=== PATIENT | male | born 1970 | race Caucasian/White ===

== ENCOUNTER 2016-11-29 05:49 | Inpatient (IN) | payer OTHER ==
[2016-11-29] VITALS (7 sets, daily range): BP systolic 125–148; BP diastolic 77–90; PULSE 80–92; RESP 17–20; TEMP 96.6–98.6; O2SAT 94–99
[~2016-11-29] VITALS: Ht 180.3 cm; Wt 123.4 kg
[2016-11-29] MEDS ORDERED: ASPI81CH37 CHEW (06:12)
[2016-11-29] MEDS ORDERED: FLUO1TAB3 PO (06:12)
[2016-11-29] MEDS ORDERED: METF1000 PO (06:12)
[2016-11-29] MEDS ORDERED: COQ150CA PO (06:12)
[2016-11-29] MEDS ORDERED: CHOL5000 PO (06:12)
[2016-11-29] MEDS ORDERED: LIPI10TA PO (06:12)
[2016-11-29] MEDS ORDERED: OMEGCAP PO (06:12)
[2016-11-29] MEDS ORDERED: PROT40TA PO (06:12)
[2016-11-29] MEDS ORDERED: DIOV160T6 PO (06:12)
[2016-11-29] MEDS ORDERED: METO100T PO (06:12)
[2016-11-29] MEDS ORDERED: SITA1TAB2 PO (06:12)
[2016-11-29] MEDS ORDERED: SODIUM CHLOR 0.9% 1000 ML INJ 1,000 ML IV SCH ×2 (06:19→08:15)
--- NOTE | 2016-11-29 06:19 | PD ---
HPI Chief Complaint: GI Complaint Time Seen by Provider: 06:01 Travel History International Travel<30 days: No Contact w/Intl Traveler<30days: No Traveled to known affect area: No History of Present Illness HPI The patient is a 46-year-old male who complains of nausea, vomiting, fever, abdominal pain in the bilateral lower quadrants and midline epigastrium for 3 days. He states his vomitus looked like coffee grounds this morning. His fever got up to 101.7. He has not had any abdominal surgeries and still has his appendix and gallbladder. He tries to drink clear liquids and and some vomiting Gatorade and water. His primary care physician is in [place] but lives in [place]. He denies any recent foreign travel, well water ingestion , recent antibiotics, history of bowel problems such as regional enteritis or ulcerative colitis and he denies any exposure to anyone with similar symptoms. He denies any cough or sore throat. He does have a history of oral controlled diabetes. He recently had to add should new via because his diabetes was poorly controlled and his sugars were in the 300s. PFSH Past Medical History High Cholesterol: Yes Diabetes: Yes Patient Takes Glucophage: Yes GERD: Yes Hiatal Hernia: Yes Hypertension: Yes Sleep Apnea: Yes (WEARS CPAP) Tetanus Vaccination: < 5 Years Influenza Vaccination: Yes Past Surgical History Ear Surgery: Yes (TUBES A CHILD) Tonsillectomy: Yes Social History Alcohol Use: Yes (SOCIALLY) Tobacco Use: No Substance Use: No Allergies-Medications (Allergen,Severity, Reaction): Coded Allergies: No Known Allergies (Unverified , 11/29/16) Reported Meds & Prescriptions Reported Meds & Active Scripts Active Reported Vitamin D3 (Cholecalciferol) 5,000 Unit Cap 5,000 Units PO DAILY Coq10 (Coenzyme Q10 (Ubidecarenone)) 50 Mg Cap 400 Mg PO DAILY Anna-3 Fish Oil/Vitamin (Fish Oil-Cholecalciferol) 1,000-1,000 Mg Cap 2,100 Mg PO DAILY Aspirin Low Dose (Aspirin) 81 Mg Chew 81 Mg CHEW DAILY Lipitor (Atorvastatin Calcium) 10 Mg Tab 10 Mg PO HS Fluoxetine (Fluoxetine HCl) 20 Mg Tab 20 Mg PO DAILY Protonix (Pantoprazole Sodium) 40 Mg Tab 40 Mg PO DAILY Diovan (Valsartan) 160 Mg Tab 160 Mg PO DAILY Metoprolol Tartrate 100 Mg Tab 100 Mg PO BID Metformin (Metformin HCl) 1,000 Mg Tab 1,000 Mg PO BIDPC With meals Januvia (Sitagliptin Phosphate) 100 Mg Tab 100 Mg PO DAILY Review of Systems Except as stated in HPI: all other systems reviewed are Neg Physical Exam Narrative GENERAL: The patient is alert, obese, oriented 3, moderately dehydrated appearing and moderate apparent distress with his abdominal discomfort. His vital signs are normal. SKIN: Focused skin assessment warm/dry. HEAD: Atraumatic. Normocephalic. EYES: Pupils equal and round. No scleral icterus. No injection or drainage. ENT: No nasal bleeding or discharge. Mucous membranes pink and moist. NECK: Trachea midline. No JVD. CARDIOVASCULAR: Regular rate and rhythm. No murmur appreciated. RESPIRATORY: No accessory muscle use. Clear to auscultation. Breath sounds equal bilaterally. GASTROINTESTINAL: Abdomen soft, with tenderness in the midline epigastrium as well as tenderness in the bilateral lower quadrants to direct palpation, nondistended. Hepatic and splenic margins not palpable. No guarding or rebound is present. MUSCULOSKELETAL: No obvious deformities. No clubbing. No cyanosis. No edema. NEUROLOGICAL: Awake and alert. No obvious cranial nerve deficits. Motor grossly within normal limits. Normal speech. PSYCHIATRIC: Appropriate mood and affect; insight and judgment normal. Data Data Last Documented VS Vital Signs Date Time Temp Pulse Resp B/P Pulse Ox O2 Delivery O2 Flow Rate FiO2 11/29/16 05:54 98.3 92 18 126/79 95 Orders Complete Blood Count With Diff (11/29/16 06:19) Comprehensive Metabolic Panel (11/29/16 06:19) Lipase (11/29/16 06:19) Urinalysis - C+S If Indicated (11/29/16 06:19) Iv Access Insert/Monitor (11/29/16 06:19) Ecg Monitoring (11/29/16 06:19) Oximetry (11/29/16 06:19) Ondansetron Inj (Zofran Inj) (11/29/16 06:30) Sodium Chlor 0.9% 1000 Ml Inj (Ns 1000 M (11/29/16 06:19) Sodium Chloride 0.9% Flush (Ns Flush) (11/29/16 06:30) Sodium Chlor 0.9% 1000 Ml Inj (Ns 1000 M (11/29/16 06:30) Labs Laboratory Tests Test 11/29/16 06:00 White Blood Count 6.1 TH/MM3 Red Blood Count 5.96 MIL/MM3 Hemoglobin 16.5 GM/DL Hematocrit 48.9 % Mean Corpuscular Volume 82.0 FL Mean Corpuscular Hemoglobin 27.6 PG Mean Corpuscular Hemoglobin 33.7 % Concent Red Cell Distribution Width 12.5 % Platelet Count 280 TH/MM3 Mean Platelet Volume 8.5 FL Neutrophils (%) (Auto) 69.7 % Lymphocytes (%) (Auto) 12.1 % Monocytes (%) (Auto) 18.0 % Eosinophils (%) (Auto) 0.0 % Basophils (%) (Auto) 0.2 % Neutrophils # (Auto) 4.3 TH/MM3 Lymphocytes # (Auto) 0.7 TH/MM3 Monocytes # (Auto) 1.1 TH/MM3 Eosinophils # (Auto) 0.0 TH/MM3 Basophils # (Auto) 0.0 TH/MM3 CBC Comment DIFF FINAL Differential Comment Sodium Level 132 MEQ/L Potassium Level 4.1 MEQ/L Chloride Level 94 MEQ/L Carbon Dioxide Level 26.5 MEQ/L Anion Gap 12 MEQ/L Blood Urea Nitrogen 25 MG/DL Creatinine 1.40 MG/DL Estimat Glomerular Filtration 54 ML/MIN Rate Random Glucose 339 MG/DL Calcium Level 9.2 MG/DL Aspartate Amino Transf 113 U/L (AST/SGOT) Alanine Aminotransferase 194 U/L (ALT/SGPT) Albumin 3.8 GM/DL Lipase 89 U/L MDM Medical Decision Making Medical Screen Exam Complete: Yes Emergency Medical Condition: Yes Medical Record Reviewed: Yes Differential Diagnosis Viral gastroenteritis, bacterial enteritis, inflammatory bowel syndrome, dehydration, electrolyte disorder, hyperglycemia, hypoglycemia, renal insufficiency Narrative Course It is now [address] Ybarra has taken over the patient. The patient feels slightly better because he is being hydrated. Car Guthrie MD Nov 29, 2016 06:19
[2016-11-29] MEDS: SODIUM CHLOR 0.9% 1000 ML INJ 1,000 ML IV SCH ×4 (06:27→16:27)
[2016-11-29 06:29] LABS: AUTOMATED NEUTROPHIL # 4.3 TH/MM3 (1.8-7.7); BASOPHIL % 0.2 % (0.0-2.0); HEMATOCRIT 48.9 % (39.0-51.0); HEMO FLAGS DIFF FINAL; LYMPH % 12.1 % (9.0-44.0); LYMPHOCYTE # 0.7 TH/MM3 (1.0-4.8); MEAN CORPUSCULAR HEMOGLOBIN 27.6 PG (27.0-34.0); MEAN CORPUSCULAR HGB CONC 33.7 % (32.0-36.0); NEUT % 69.7 % (16.0-70.0); PLATELET COUNT 280 TH/MM3 (150-450); RED BLOOD COUNT 5.96 MIL/MM3 (4.50-5.90); RED CELL DISTRIBUTION WIDTH 12.5 % (11.6-17.2); WHITE BLOOD COUNT 6.1 TH/MM3 (4.0-11.0)
[2016-11-29] MEDS ORDERED: SODIUM CHLORIDE 0.9% FLUSH 10 ML FLUSH IV FLUSH PRN ×2 (06:30→08:30)
[2016-11-29] MEDS ORDERED: ONDANSETRON HCL 4 MG/2 ML VIAL IVP ONE (06:30)
[2016-11-29 06:34] LABS: CHLORIDE 94 MEQ/L (98-107); POTASSIUM 4.1 MEQ/L (3.5-5.1); SODIUM (NA) 132 MEQ/L (136-145)
[2016-11-29 06:38] LABS: ANION GAP 12 MEQ/L (5-15); BICARBONATE 26.5 MEQ/L (21.0-32.0)
[2016-11-29 06:39] LABS: BLOOD UREA NITROGEN 25 MG/DL (7-18)
[2016-11-29 06:41] LABS: ALT (GPT) 194 U/L (12-78); AST (GOT) 113 U/L (15-37); GLOMERULAR FILTRATION RATE 54 ML/MIN (>89)
[2016-11-29 06:43] LABS: TOTAL BILIRUBIN ADULT 1.7 MG/DL (0.2-1.0)
[2016-11-29 06:44] LABS: ALKALINE PHOSPHATASE 129 U/L (45-117)
--- NOTE | 2016-11-29 07:13 | PD ---
Physical Exam Narrative Patient was seen by ED physician and signed out to me. Data Data Last Documented VS Vital Signs Date Time Temp Pulse Resp B/P Pulse Ox O2 Delivery O2 Flow Rate FiO2 11/29/16 08:24 80 18 148/90 98 Room Air 11/29/16 06:55 98.6 Orders Complete Blood Count With Diff (11/29/16 06:19) Comprehensive Metabolic Panel (11/29/16 06:19) Lipase (11/29/16 06:19) Urinalysis - C+S If Indicated (11/29/16 06:19) Iv Access Insert/Monitor (11/29/16 06:19) Ecg Monitoring (11/29/16 06:19) Oximetry (11/29/16 06:19) Ondansetron Inj (Zofran Inj) (11/29/16 06:30) Sodium Chlor 0.9% 1000 Ml Inj (Ns 1000 M (11/29/16 06:19) Sodium Chloride 0.9% Flush (Ns Flush) (11/29/16 06:30) Sodium Chlor 0.9% 1000 Ml Inj (Ns 1000 M (11/29/16 06:30) Ct Abd/Pel W Iv Contrast(Rout) (11/29/16 06:56) Iohexol 350 Inj (Omnipaque 350 Inj) (11/29/16 07:36) Sodium Chlorid 0.9% 500 Ml Inj (Ns 500 M (11/29/16 08:00) Sodium Chlor 0.9% 1000 Ml Inj (Ns 1000 M (11/29/16 08:15) Pantoprazole Inj (Protonix Inj) (11/29/16 08:15) Us Abdomen Gallbladder (11/29/16 08:07) Admit To Inpatient (11/29/16 ) Vital Signs (Adult) Q4H (11/29/16 08:25) Activity Oob With Assistance (11/29/16 08:25) Intake + Output MIGUEL A.QSHIFT (11/29/16 08:25) Diet Npo (11/29/16 Breakfast) Sodium Chlor 0.9% 1000 Ml Inj (Ns 1000 M (11/29/16 08:25) Sodium Chloride 0.9% Flush (Ns Flush) (11/29/16 08:30) Sodium Chloride 0.9% Flush (Ns Flush) (11/29/16 09:00) Ondansetron Inj (Zofran Inj) (11/29/16 08:30) Comprehensive Metabolic Panel (11/30/16 06:00) Complete Blood Count With Diff (11/30/16 06:00) Pt Request For Service (11/29/16 08:25) Case Management Consult (11/29/16 08:25) Scd Bilateral/Knee High MIGUEL A.BID (11/29/16 08:25) Naloxone Inj (Narcan Inj) (11/29/16 08:30) Inpatient Certification (11/29/16 ) Admit Order (Ed Use Only) (11/29/16 08:31) Labs Laboratory Tests Test 11/29/16 11/29/16 06:00 07:20 White Blood Count 6.1 TH/MM3 Red Blood Count 5.96 MIL/MM3 Hemoglobin 16.5 GM/DL Hematocrit 48.9 % Mean Corpuscular Volume 82.0 FL Mean Corpuscular Hemoglobin 27.6 PG Mean Corpuscular Hemoglobin 33.7 % Concent Red Cell Distribution Width 12.5 % Platelet Count 280 TH/MM3 Mean Platelet Volume 8.5 FL Neutrophils (%) (Auto) 69.7 % Lymphocytes (%) (Auto) 12.1 % Monocytes (%) (Auto) 18.0 % Eosinophils (%) (Auto) 0.0 % Basophils (%) (Auto) 0.2 % Neutrophils # (Auto) 4.3 TH/MM3 Lymphocytes # (Auto) 0.7 TH/MM3 Monocytes # (Auto) 1.1 TH/MM3 Eosinophils # (Auto) 0.0 TH/MM3 Basophils # (Auto) 0.0 TH/MM3 CBC Comment DIFF FINAL Differential Comment Sodium Level 132 MEQ/L Potassium Level 4.1 MEQ/L Chloride Level 94 MEQ/L Carbon Dioxide Level 26.5 MEQ/L Anion Gap 12 MEQ/L Blood Urea Nitrogen 25 MG/DL Creatinine 1.40 MG/DL Estimat Glomerular Filtration 54 ML/MIN Rate Random Glucose 339 MG/DL Calcium Level 9.2 MG/DL Total Bilirubin 1.7 MG/DL Aspartate Amino Transf 113 U/L (AST/SGOT) Alanine Aminotransferase 194 U/L (ALT/SGPT) Alkaline Phosphatase 129 U/L Total Protein 8.8 GM/DL Albumin 3.8 GM/DL Lipase 89 U/L Urine Collection Type VOIDED Urine Color YELLOW Urine Turbidity CLEAR Urine pH 5.5 Urine Specific [place] 1.035 Urine Protein TRACE mg/dL Urine Glucose (UA) 500 mg/dL Urine Ketones 15 mg/dL Urine Occult Blood NEG Urine Nitrite NEG Urine Bilirubin NEG Urine Leukocyte Esterase NEG Urine WBC 0-2 /hpf Urine Squamous Epithelial 0-2 /hpf Cells Urine Hyaline Casts 10-14 /lpf Urine Mucus FEW /lpf Microscopic Urinalysis Comment CULT NOT INDICATED MDM Supervised Visit with RIKKI: No Interpretation(s) Last Impressions Abdomen/Pelvis CT 11/29/16 0656 Signed Impressions: Service Date/Time: Tuesday, November 29, 2016 07:19 - CONCLUSION: 1. Hepatic steatosis and cholelithiasis. 2. Multiple dilated jejunal bowel loops concerning for junction. 3. Right adrenal nodule, nonspecific but likely lipid poor adrenal adenoma. Nehemias Lomeli MD 7:59 AM. CBC within normal limit. Sodium 132. BUN 25. Margarita 1.40. GFR 54. Glucose 339. Total bili 1.7. AST 113. ALT 194. Alkaline phosphatase 129. UA is Johnson gravity 1.035. Narrative Course Normal saline solution 2 L IV bolus. Normal saline solution 1 25 cc an hour. Zofran 4 g IV. Protonix 40 mg IV. I spoke with general surgery Dr. Ragland. Advised hold off on NG tube for now. GI consultation will be initiated. Diagnosis Primary Impression: Ileus Additional Impressions: Cholelithiasis Qualified Code: K80.20 - Calculus of gallbladder without cholecystitis without obstruction Transaminitis Renal insufficiency Hyperglycemia Admitting Information Admitting Physician Requests: Admit Anson Ybarra MD Nov 29, 2016 07:13
[2016-11-29] MEDS ORDERED: METFORMIN HOLD POST IV CONTRAST SCH (07:20)
[2016-11-29 07:34] LABS: BLOOD, URINE NEG (NEG); GLUCOSE,URINE 500 mg/dL (NEG); KETONE, URINE 15 mg/dL (NEG); NITRITE,URINE NEG (NEG); PH, URINE 5.5 (5.0-8.5)
[2016-11-29] MEDS ORDERED: IOHEXOL 350 MG/ML 10 ML VIAL (for RAD DIAG) IV ONE (07:36)
[2016-11-29 07:45] LABS: METHOD OF COLLECTION VOIDED; MUCUS URINE FEW /lpf (OCC); SQUAMOUS EPITHELIAL CELL URINE 0-2 /hpf (0-5); URINE COLOR YELLOW (YELLW/STRAW); WBC, URINE 0-2 /hpf (0-5)
[2016-11-29 07:46] LABS: COMMENT (UR) CULT NOT INDICATED; CULTURE IF INDICATED CULT NOT INDICATED
--- NOTE | 2016-11-29 07:49 | RADRPT ---
EXAM DATE/TIME: 11/29/2016 07:19 [facility] COMPARISON: No previous studies available for comparison. INDICATIONS : Lower abdominal pain. Nausea, vomiting, diarrhea and fever. IV CONTRAST: 85 cc Omnipaque 350 (iohexol) IV ORAL CONTRAST: No oral contrast ingested. RADIATION DOSE: 21.95 CTDIvol (mGy) MEDICAL HISTORY : Diabetes mellitus type 2. Gastroesophageal reflux disease. Hypertension. SURGICAL HISTORY : None. ENCOUNTER: Initial ACUITY: 3 days PAIN SCALE: 3/10 LOCATION: Bilateral lower quadrant TECHNIQUE: Volumetric scanning of the abdomen and pelvis was performed. Using automated exposure control and ad justment of the mA and/or kV according to patient size, radiation dose was kept as low as reasonably achievable to obtain optimal diagnostic quality images. DICOM format image data is available electro nically for review and comparison. FINDINGS: LOWER LUNGS: The visualized lower lungs are clear. LIVER: Decreased attenuation without lesion. There is no dilation of the biliary tree. Multiple calcified g allstones. SPLEEN: Normal size without lesion. PANCREAS: Within normal limits. KIDNEYS: Normal in size and shape. There is no mass, stone or hydronephrosis. ADRENAL GLANDS: 1.7 cm right adrenal nodule. Left adrenal gland normal. VASCULAR: There is no aortic aneurysm. BOWEL/MESENTERY: Multiple dilated loops of jejunum are seen concerning for obstruction.. There is no free intraperito lauro air or fluid. ABDOMINAL WALL: Within normal limits. RETROPERITONEUM: There is no lymphadenopathy. BLADDER: No wall thickening or mass. REPRODUCTIVE: Within normal limits. INGUINAL: There is no lymphadenopathy or hernia. MUSCULOSKELETAL: Within normal limits for patient age. CONCLUSION: 1. Hepatic steatosis and cholelithiasis. 2. Multiple dilated jejunal bowel loops concerning for junction. 3. Right adrenal nodule, nonspecific but likely lipid poor adrenal adenoma. Nehemias Lomeli MD on November 29, 2016 at 7:45 Board Certified Radiologist. This report was verified electronically.
[2016-11-29] MEDS ORDERED: SODIUM CHLORID 0.9% 500 ML INJ 500 ML IV ONE (08:00)
[2016-11-29] MEDS ORDERED: PANTOPRAZOLE SODIUM 40 MG VIAL IV PUSH ONE (08:15)
[2016-11-29] MEDS ORDERED: NALOXONE HCL 0.4 MG/ML AMP IV PRN (08:30)
[2016-11-29] MEDS ORDERED: ONDANSETRON HCL 4 MG/2 ML VIAL IVP PRN (08:30)
--- NOTE | 2016-11-29 08:44 | RADRPT ---
EXAM DATE/TIME: 11/29/2016 08:14 [facility] COMPARISON: No previous studies available for comparison. INDICATIONS : Nausea and vomiting. MEDICAL HISTORY : Diabetes mellitus type 2. Gastroesophageal reflux disease. Hypertension. SURGICAL HISTORY : None. ENCOUNTER: Subsequent ACUITY: 3 days PAIN SCORE: 3/10 LOCATION: Right upper quadrant MEASUREMENTS: LIVER: 20.2 cm length COMMON DUCT: Non-visualized RIGHT KIDNEY: 11.7 x 6.5 x 6.4 cm FINDINGS: LIVER: Enlarged and echogenic without focal lesion or ductal dilatation. COMMON DUCT: Not seen. GALLBLADDER: not visualized. PANCREAS: Not visualized. RIGHT KIDNEY: No evidence of hydronephrosis, stone, or mass. CONCLUSION: 1. Enlarged echogenic liver likely severe hepatic steatosis. 2. Nonvisualization of the common bile duct, gallbladder and pancreas due to overlying bowel gas. Nehemias Lomeli MD on November 29, 2016 at 8:39 Board Certified Radiologist. This report was verified electronically.
[2016-11-29] MEDS: SODIUM CHLORIDE 0.9% FLUSH 10 ML FLUSH IV FLUSH SCH ×2 (09:00→21:00)
[2016-11-29] MEDS ORDERED: ONDANSETRON HCL 4 MG/2 ML VIAL IV PUSH ONE (09:15)
[2016-11-29] MEDS: METOPROLOL TARTRATE 100 MG TAB PO SCH ×2 (10:17→21:42)
[2016-11-29] MEDS: INSULIN ASPART SUPPLEMENTAL SCALE SQ SCH ×2 (11:00→17:21)
--- NOTE | 2016-11-29 11:38 | HHI.HP ---
[facility] Physician Non-Staff Admission Diagnosis Ileus. Cholelithiasis. Renal insufficiency. Hyperglycemia. Diagnoses: (1) Nausea and vomiting Diagnosis: Principal (2) Hematemesis Diagnosis: Principal (3) Diarrhea Diagnosis: Principal (4) Small bowel obstruction Diagnosis: Principal (5) Ileus Diagnosis: Principal (6) Transaminitis Diagnosis: Principal (7) Azotemia Diagnosis: Principal (8) Hyponatremia Diagnosis: Principal (9) Diabetes Diagnosis: Secondary (10) Hypertension Diagnosis: Secondary (11) Hyperlipidemia Diagnosis: Secondary Chief Complaint: Nausea and vomiting with blood noted in emesis Travel History International Travel<30 Days: No Contact w/Intl Traveler <30 Da: No Traveled to Known Affected Are: No History of Present Illness Written by Sha Guthrie, acting as scribe for Dr. Winn on 11/29/16 at 11: 18. 46-year-old male with known history of hypertension, hyperlipidemia, diabetes, sleep apnea who presented to the hospital for evaluation of blood noted in his emesis. Patient indicates that his symptoms started 2 days ago, in which he started having episodes of nausea and vomiting on Friday night. His symptoms continued throughout with nausea, vomiting and he started developing watery diarrhea. He noticed that he was having a fever of 102 intermittently throughout the day. The fever was controlled with Tylenol. The patient did take 2 Imodium yesterday for control of the diarrhea which did help. Patient noticed that on night he started having black liquid when he vomited. Then early this morning he vomited and noticed specks of blood , and that was the reason he came to the hospital for evaluation. Patient indicates that he has had abdominal pain since located in upper and lower abdomen. He denies any sick contacts. He still has significant nausea with intermittent vomiting. Denies any chest pain, shortness of breath, dyspnea. The patient indicates that he does have diabetes and has been uncontrolled lately, recently he just had change in his medications with the addition of Januvia. Patient does have family history of early-onset heart disease and he has had workup with nuclear stress test 2 years ago which was negative. She has significant findings upon workup in emergency department to include CT scan indicating small bowel obstruction. Elevated liver enzymes, CT scan does show steatohepatitis and cholelithiasis. However ultrasound could not evaluate bile duct, gallbladder, pancreas due to bowel gas. Patient was admitted the hospital for further evaluation and management. Review of Systems Constitutional: COMPLAINS OF: Fever Gastrointestinal: COMPLAINS OF: Abdominal pain, Diarrhea, Nausea, Vomiting Except as stated in HPI: all other systems reviewed are Neg Past Family Social History Past Medical History Hypertension Hyperlipidemia Diabetes Sleep apnea Past Surgical History Tonsillectomy Tympanotomies Reported Medications Reported Meds & Active Scripts Active Reported Vitamin D3 (Cholecalciferol) 5,000 Unit Cap 5,000 Units PO DAILY Coq10 (Coenzyme Q10 (Ubidecarenone)) 50 Mg Cap 400 Mg PO DAILY [place]-3 Fish Oil/Vitamin (Fish Oil-Cholecalciferol) 1,000-1,000 Mg Cap 2,100 Mg PO DAILY Aspirin Low Dose (Aspirin) 81 Mg Chew 81 Mg CHEW DAILY Lipitor (Atorvastatin Calcium) 10 Mg Tab 10 Mg PO HS Fluoxetine (Fluoxetine HCl) 20 Mg Tab 20 Mg PO DAILY Protonix (Pantoprazole Sodium) 40 Mg Tab 40 Mg PO DAILY Diovan (Valsartan) 160 Mg Tab 160 Mg PO DAILY Metoprolol Tartrate 100 Mg Tab 100 Mg PO BID Metformin (Metformin HCl) 1,000 Mg Tab 1,000 Mg PO BIDPC With meals Januvia (Sitagliptin Phosphate) 100 Mg Tab 100 Mg PO DAILY Allergies: Coded Allergies: No Known Allergies (Unverified , 11/29/16) Family History Reviewed is significant for mother having heart disease, diabetes. Father with early onset heart disease, at age 48 from coronary event. Social History Patient states that he used anteriorly smoke cigars 20 years ago. He does drink alcohol occasionally approximately 2 times weekly. Denies any illicit drugs Physical Exam Vital Signs Vital Signs Date Time Temp Pulse Resp B/P Pulse Ox O2 Delivery O2 Flow Rate FiO2 11/29/16 10:18 98.1 80 17 131/78 96 11/29/16 08:24 80 18 148/90 98 Room Air 11/29/16 06:55 98.6 81 20 134/88 97 Room Air 11/29/16 05:54 98.3 92 18 126/79 95 Physical Exam GENERAL: Well-developed, well-nourished, in no acute distress. alert and orientated HEENT: Head is normocephalic without any lesions or masses noted. Facial features are symmetric. Eyes: Pupils equal round reactive to light. Extraocular muscles are intact. Conjunctivae were clear. Oropharyngeal: Pharynx without any erythema edema. Tongue is midline without deviation. Buccal mucosa is moist without any masses or lesions NECK: Supple without any masses. Trachea midline no deviation. No JVD, no bruits are appreciated CARDIAC: Regular rhythm, regular rate. S1/S2 are heard. No murmurs gallops or rubs. LUNGS: Clear to auscultation bilaterally. No wheeze, rhonchi or rales. No use of accessory muscles on inspiration or expiration. ABDOMEN: Soft, nontender. Distended. Bowel sounds hypoactive. No organomegaly or masses. Negative rebound, negative guarding EXTREMITIES: No edema, pulses are equal bilaterally. No cyanosis or clubbing NEUROLOGY: Mood and affect appear appropriate. Cranial nerves II through XII grossly intact. Muscle strength 5/5 in upper and lower extremities bilaterally. Deep tendon reflexes are 2+ in upper and lower extremities bilaterally. Laboratory Laboratory Tests Test 11/29/16 11/29/16 06:00 07:20 White Blood Count 6.1 Red Blood Count 5.96 Hemoglobin 16.5 Hematocrit 48.9 Mean Corpuscular Volume 82.0 Mean Corpuscular Hemoglobin 27.6 Mean Corpuscular Hemoglobin 33.7 Concent Red Cell Distribution Width 12.5 Platelet Count 280 Mean Platelet Volume 8.5 Neutrophils (%) (Auto) 69.7 Lymphocytes (%) (Auto) 12.1 Monocytes (%) (Auto) 18.0 Eosinophils (%) (Auto) 0.0 Basophils (%) (Auto) 0.2 Neutrophils # (Auto) 4.3 Lymphocytes # (Auto) 0.7 Monocytes # (Auto) 1.1 Eosinophils # (Auto) 0.0 Basophils # (Auto) 0.0 CBC Comment DIFF FINAL Differential Comment Sodium Level 132 Potassium Level 4.1 Chloride Level 94 Carbon Dioxide Level 26.5 Anion Gap 12 Blood Urea Nitrogen 25 Creatinine 1.40 Estimat Glomerular Filtration 54 Rate Random Glucose 339 Calcium Level 9.2 Total Bilirubin 1.7 Aspartate Amino Transf 113 (AST/SGOT) Alanine Aminotransferase 194 (ALT/SGPT) Alkaline Phosphatase 129 Total Protein 8.8 Albumin 3.8 Lipase 89 Urine Collection Type VOIDED Urine Color YELLOW Urine Turbidity CLEAR Urine pH 5.5 Urine Specific [place] 1.035 Urine Protein TRACE Urine Glucose (UA) 500 Urine Ketones 15 Urine Occult Blood NEG Urine Nitrite NEG Urine Bilirubin NEG Urine Leukocyte Esterase NEG Urine WBC 0-2 Urine Squamous Epithelial 0-2 Cells Urine Hyaline Casts 10-14 Urine Mucus FEW Microscopic Urinalysis Comment CULT NOT INDICATED Result Diagram: 11/29/16 0600 11/29/16 06 Imaging Last Impressions Gall Bladder Ultrasound 11/29/16 0807 Signed Impressions: Service Date/Time: Tuesday, November 29, 2016 08:14 - CONCLUSION: 1. Enlarged echogenic liver likely severe hepatic steatosis. 2. Nonvisualization of the common bile duct, gallbladder and pancreas due to overlying bowel gas. Nehemias Lomeli MD Abdomen/Pelvis CT 11/29/16 0656 Signed Impressions: Service Date/Time: Tuesday, November 29, 2016 07:19 - CONCLUSION: 1. Hepatic steatosis and cholelithiasis. 2. Multiple dilated jejunal bowel loops concerning for junction. 3. Right adrenal nodule, nonspecific but likely lipid poor adrenal adenoma. Nehemias Lomeli MD Assessment and Plan Assessment and Plan //Small bowel obstruction/ileus -Could be secondary to Imodium use -CT scan does indicate multiple dilated loops of jejunum concerning for obstruction -Surgery has been consulted for recommendations -Keep nothing by mouth -Continue IV fluids -If nausea vomiting persists may need to pursue NG tube for decompression -Check lactic acid level //Nausea, vomiting and diarrhea with possible hematemesis -Could be secondary to gastroenteritis, food poisoning -Continue Zofran -Continue IV fluids -GI consulted for recommendations -Continue Protonix -Check occult blood -Check stool for C. difficile //Transaminitis with hyperbilirubinemia -Could be secondary to nausea, vomiting, cholecystitis, cholelithiasis, [place] -CT scan does show a large liver with steatohepatitis -Gallbladder ultrasound unable to visualize bile duct, gallbladder, pancreas due to air, deferred to GI for possible HIDA scan -Check hepatitis profile -Continue monitor liver enzymes -Would appreciate recommendations from GI //Azotemia, unknown chronicity -Laboratory studies do indicate concentration, likely secondary to dehydration -Continue IV fluids -Monitor renal function //Hyponatremia -Pseudohyponatremia secondary to hyperglycemia -Corrected sodium level 136 //Diabetes, uncontrolled -Obtain hemoglobin A1c -Accu-Cheks with sliding scale insulin -Oral hypoglycemic agents held at this time due to likely obstruction //Hypertension, blood pressure stable this time -Continue home medications //Hyperlipidemia -Hold statin at this time due to elevated liver enzymes //DVT prevention -Sequential compression devices Physician Certification 2 Midnight Certification Type: Admission for Inpatient Services Order for Inpatient Services The services are ordered in accordance with Medicare regulations or non- Medicare payer requirements, as applicable. In the case of services not specified as inpatient-only, they are appropriately provided as inpatient services in accordance with the 2-midnight benchmark. Estimated LOS (days): 2 days is the estimated time the patient will need to remain in the hospital, assuming treatment plan goals are met and no additional complications. Post-Hospital Plan: Not yet determined Notes: This note was transcribed by scribe [Sha Guthrie]. I, Dr. Chava Winn personally performed the history, physical exam, and medical decision making; and confirmed the accuracy of the information in the transcribed note. Authenticated by Dr. Chava Winn on 11/29/16 at 14:38. Problem Qualifiers (1) Nausea and vomiting: (2) Hematemesis: Qualified Code: K92.0 - Hematemesis, presence of nausea not specified (3) Diarrhea: Qualified Code: R19.7 - Diarrhea, unspecified type (4) Diabetes: Qualified Code: E11.8 - Type 2 diabetes mellitus with complication, without long-term current use of insulin (5) Hypertension: Qualified Code: I10 - Hypertension, unspecified type (6) Hyperlipidemia: Qualified Code: E78.5 - Hyperlipidemia, unspecified hyperlipidemia type Sha Guthrie Nov 29, 2016 11:38 Chava Winn MD Nov 29, 2016 14:38
[2016-11-29 12:21] LABS: INDIRECT BILIRUBIN 0.7 MG/DL (0.0-0.8); TOTAL BILIRUBIN ADULT 1.1 MG/DL (0.2-1.0)
--- NOTE | 2016-11-29 16:35 | PD.CONS ---
HPI History of Present Illness This is a 46 year old male presented to the ER for evaluation of hematemesis. Started having nausea and vomiting 2 days ago. Reports emesis was black liquid yesterday and then this morning he noted specks of blood in his vomit. Watery diarrhea started yesterday, took Imodium with mild relief.. Reports fevers at home, high of 102, took Tylenol with decrease in fever. Having diffuse abdominal pain and abdominal distention. Patient with medical history significant for hypertension, hyperlipidemia, diabetes, and sleep apnea. CT scan done in ER showed small bowel obstruction, steatohepatitis, and cholelithiasis. NG tube was placed with at least 950 mL output, green bilious liquid. Patient states he has never had colonoscopy. Has had EGD x 2 due to acid reflux, reports showed hiatal hernia, but denies history of gastric ulcers or gastritis. Reports symptoms of nausea, vomiting, and abdominal pain are improving since NG tube placement. (Beth Pringle) PFSH Past Medical History Hypertension Hyperlipidemia Diabetes Sleep apnea Past Surgical History Tonsillectomy Tympanotomies (Beth Prignle) Coded Allergies: No Known Allergies (Unverified , 11/29/16) Medications Current Medications Medications (Trade) Dose Ordered Sig/Josephine Route PRN Reason Start Time Stop Time Status Last Admin Dose Admin Sodium Chloride (NS 1000 ml Inj) 1,000 ml @ 100 mls/hr Q10H IV 11/29/16 08:25 11/29/16 10:18 Sodium Chloride (NS Flush) 2 ml UNSCH PRN IV FLUSH FLUSH AFTER USING IV ACCESS 11/29/16 08:30 Sodium Chloride (NS Flush) 2 ml BID IV FLUSH 11/29/16 09:00 Ondansetron HCl (Zofran Inj) 4 mg Q6H PRN IVP NAUSEA OR VOMITING 11/29/16 08:30 Naloxone HCl (Narcan Inj) 0.4 mg UNSCH PRN IV SEE LABEL COMMENTS 11/29/16 08:30 Metoprolol Tartrate (Lopressor) 100 mg BID PO 11/29/16 09:00 11/29/16 10:17 Miscellaneous Information HOLD METFORMIN FOR... Q24H .XX 11/29/16 07:20 12/01/16 07:19 Pantoprazole Sodium (Protonix Inj) 40 mg Q12HR IV PUSH 11/29/16 21:00 Family History ,Maternal -- Heart disease, diabetes Paternal -- Early onset heart disease, at age 48 secondary to coronary event. Social History Tobacco: No current use, tobacco history of cigars 20 years ago ETOH: 2 times per week Illicit Drugs: Denies (Beth Pringle) Review of Systems Constitutional: COMPLAINS OF: Fever, DENIES: Diaphoretic episodes, Fatigue, Weight gain, Weight loss, Chills, Dizziness, Change in appetite, Night Sweats Endocrine: DENIES: Polydipsia, Polyuria Eyes: DENIES: Blurred vision, Photosensitivity, Double Vision Ears, nose, mouth, throat: DENIES: Hearing loss, Vertigo, Oral lesions, Throat pain, Hoarseness Gastrointestinal: COMPLAINS OF: Abdominal pain, Diarrhea, Nausea, Vomiting, Swelling of Abdomen, DENIES: Black stools, Bloody stools, Constipation, Difficulty Swallowing, Anorexia, Odynophagia, Heartburn, Hematemesis Genitourinary: DENIES: Urinary frequency, Urinary incontinence, Urgency, Hematuria, Dysuria, Nocturia Musculoskeletal: DENIES: Joint pain, Muscle aches, Stiffness, Joint Swelling, Back pain, Neck pain Integumentary: DENIES: Abnormal pigmentation, Nail changes, Pruritus, Rash, Jaundice Hematologic/lymphatic: DENIES: Bruising, Lymphadenopathy Immunologic/allergic: DENIES: Eczema, Urticaria Neurologic: DENIES: Abnormal gait, Headache, Localized weakness, Paresthesias Psychiatric: DENIES: Anxiety, Confusion, Mood changes, Depression, Agitation, Suicidal Ideation (Beth Pringle) GI Exam Vitals I&O Vital Signs Date Time Temp Pulse Resp B/P Pulse Ox O2 Delivery O2 Flow Rate FiO2 11/29/16 12:00 97.8 89 17 138/86 99 11/29/16 10:18 98.1 80 17 131/78 96 11/29/16 08:24 80 18 148/90 98 Room Air 11/29/16 06:55 98.6 81 20 134/88 97 Room Air 11/29/16 05:54 98.3 92 18 126/79 95 I/O 11/28/16 11/28/16 11/28/16 11/29/1617 7/21/17 07:00 15:00 23:00 07:00 15:00 23:00 Intake Total 2000 ml Output Total 1100 ml Balance 900 ml Intake IV Total 2000 ml Output Urine Total 150 ml Emesis 950 ml # Voids 1 Imaging Last Impressions Gall Bladder Ultrasound 11/29/16 0807 Signed Impressions: Service Date/Time: Tuesday, November 29, 2016 08:14 - CONCLUSION: 1. Enlarged echogenic liver likely severe hepatic steatosis. 2. Nonvisualization of the common bile duct, gallbladder and pancreas due to overlying bowel gas. Nehemias Lomeli MD Abdomen/Pelvis CT 11/29/16 0656 Signed Impressions: Service Date/Time: Tuesday, November 29, 2016 07:19 - CONCLUSION: 1. Hepatic steatosis and cholelithiasis. 2. Multiple dilated jejunal bowel loops concerning for junction. 3. Right adrenal nodule, nonspecific but likely lipid poor adrenal adenoma. Nehemais Lomeli MD Laboratory Test 11/29/16 11/29/16 11/29/16 06:00 07:20 11:50 White Blood Count 6.1 TH/MM3 Red Blood Count 5.96 MIL/MM3 Hemoglobin 16.5 GM/DL Hematocrit 48.9 % Mean Corpuscular Volume 82.0 FL Mean Corpuscular Hemoglobin 27.6 PG Mean Corpuscular Hemoglobin 33.7 % Concent Red Cell Distribution Width 12.5 % Platelet Count 280 TH/MM3 Mean Platelet Volume 8.5 FL Neutrophils (%) (Auto) 69.7 % Lymphocytes (%) (Auto) 12.1 % Monocytes (%) (Auto) 18.0 % Eosinophils (%) (Auto) 0.0 % Basophils (%) (Auto) 0.2 % Neutrophils # (Auto) 4.3 TH/MM3 Lymphocytes # (Auto) 0.7 TH/MM3 Monocytes # (Auto) 1.1 TH/MM3 Eosinophils # (Auto) 0.0 TH/MM3 Basophils # (Auto) 0.0 TH/MM3 CBC Comment DIFF FINAL Differential Comment Sodium Level 132 MEQ/L Potassium Level 4.1 MEQ/L Chloride Level 94 MEQ/L Carbon Dioxide Level 26.5 MEQ/L Anion Gap 12 MEQ/L Blood Urea Nitrogen 25 MG/DL Creatinine 1.40 MG/DL Estimat Glomerular Filtration 54 ML/MIN Rate Random Glucose 339 MG/DL Calcium Level 9.2 MG/DL Total Bilirubin 1.7 MG/DL 1.1 MG/DL Aspartate Amino Transf 113 U/L (AST/SGOT) Alanine Aminotransferase 194 U/L (ALT/SGPT) Alkaline Phosphatase 129 U/L Total Protein 8.8 GM/DL Albumin 3.8 GM/DL Lipase 89 U/L Urine Collection Type VOIDED Urine Color YELLOW Urine Turbidity CLEAR Urine pH 5.5 Urine Specific [place] 1.035 Urine Protein TRACE mg/dL Urine Glucose (UA) 500 mg/dL Urine Ketones 15 mg/dL Urine Occult Blood NEG Urine Nitrite NEG Urine Bilirubin NEG Urine Leukocyte Esterase NEG Urine WBC 0-2 /hpf Urine Squamous Epithelial 0-2 /hpf Cells Urine Hyaline Casts 10-14 /lpf Urine Mucus FEW /lpf Microscopic Urinalysis Comment CULT NOT INDICATED Lactic Acid Level 1.7 mmol/L Direct Bilirubin 0.4 MG/DL Indirect Bilirubin 0.7 MG/DL Physical Examination HEENT: PERRLA. NGT in place at right nostril NECK: Neck is supple, no JVD, no lymphadenopathy. CHEST: CTA CARDIAC: RRR ABDOMEN: Soft, mild diffuse TTP, distended. Bowel sounds hypoactive. EXTREMITIES: No clubbing, cyanosis, or edema. SKIN: Normal; no rash; no jaundice. [employer]: No focal deficits; alert and oriented times three. (Beth Pringle) Assessment and Plan Plan ASSESSMENT: Small bowel obstruction/ileus, Abdomen/Pelvis CT 11/29/16-- 1. Hepatic steatosis and cholelithiasis. 2. Multiple dilated jejunal bowel loops concerning for junction. 3. Right adrenal nodule, nonspecific but likely lipid poor adrenal adenoma NPO. NGT IWS. General surgery consulted. Continues to have diffuse abdominal pain, but mild. Transaminitis with hyperbilirubinemia, Gall Bladder Ultrasound 11/29/16--1. Enlarged echogenic liver likely severe hepatic steatosis. 2. Nonvisualization of the common bile duct, gallbladder and pancreas due to overlying bowel gas. CT scan as above Nausea, vomiting, diarrhea, with possible hematemesis, N/V improving with NGT. C diff and Hemoccult ordered, awaiting. PLAN: -Consider HIDA scan -Await Hemoccult results -Await Cdiff results -Await Hepatitis panel -NPO -Continue NGT IWS -Continue IV Protonix -Continue IV fluids -Symptomatic management -Further recommendations to follow based on the results of above. Patient seen and examined by myself and Dr. Keyes and this note is written on his behalf. (Beth Pringle) Physician Comments patient was seen and examined, agree with above note, may need EGD when ileus resolves. (Rodolfo Keyes MD) Beth Pringle Nov 29, 2016 16:35 Rodolfo Keyes MD Nov 29, 2016 20:36
--- NOTE | 2016-11-29 19:50 | MB ---
cc: MARTINE MORFIN M.D. DATE OF CONSULTATION: 11/29/2016. REASON FOR CONSULTATION: Small bowel obstruction, nausea, diarrhea, lower abdominal discomfort. HISTORY OF PRESENT ILLNESS: This is a pleasant 46-year-old gentleman who is in a fairly healthy state. He said over the last few days he had just developed some abdominal discomfort with diarrhea and nausea and vomiting. He came into the emergency room. CT scan was done which showed what is thought to be an obstruction. He was also found to have gallstones but they do not look like the gallbladder is inflamed. He denies any right upper quadrant pain and just the nausea and vomiting and profuse diarrhea. He has not been ill before and has not taken any antibiotics. He does not relate it to any fatty food intolerance or food intolerances. No real fevers or chills. He had an episode of coffee-ground emesis as well. Since being in the hospital, they placed a nasogastric tube and it just drained out about 900 cc of bilious fluid and he feels a lot better. replace the NG tube in just drained out 900 mL of bilious fluid and he feels a lot better. PAST MEDICAL HISTORY: Negative for any chronic medical problems except for diabetes AND hypertension that is controlled with medications. PAST SURGICAL HISTORY: He has never had any surgery except on his wrist. No cardiac or pulmonary issues. ALLERGIES: Not allergic to anything. MEDICATIONS: His medications include: 1. Lipitor. 2. Aspirin. 3. Coenzyme. 4. Fish oil. 5. Fluoxetine. 6. Metformin. 7. Metoprolol. 8. Protonix. 9. Januvia. 10. Diovan. PHYSICAL EXAMINATION: GENERAL: On physical exam he has a nasogastric tube. He is alert, pleasant, cooperative gentleman. He has a BMI of 37. NECK: The neck is supple. CHEST: Clear. HEART: Regular rate. ABDOMEN: Soft. It is slightly obese without surgical scars without rebound or guarding. He has no Larkin's sign and no tenderness to McBurney's point. EXTREMITIES: Moves all extremities well with no cyanosis or edema. NEUROLOGIC: He is alert, oriented and a little bit concerned about his medical condition. LABORATORY STUDIES: White count of 6, hemoglobin 16 and hematocrit of 48. Chemistry showed creatinine of 1.4, glucose was elevated at 339. Liver function tests all elevated with total bilirubin of 1.7. Urinalysis showed glucose, some ketones. No bilirubin. He has a hepatitis panel pending. C. difficile is pending as well. IMAGING STUDIES: He had an abdominal CT scan which showed numerous gallstones, thought of an obstruction around the jejunum, right benign-looking adrenal gland adenoma. They did an ultrasound. Unfortunately his stomach I think was so dilated that the could not see the gallbladder or the biliary tree but they saw no obvious inflammation. There is a slightly enlarged liver. When I reviewed the CT scan, there are numerous stones in the gallbladder. I do not see a dilated duct. The gallbladder does not look particularly inflamed. ASSESSMENT: A pleasant 46-year-old gentleman who has never had surgery who is found to have gallstones on CT scan, thought to be a small bowel obstruction with nausea and vomiting and diarrhea. He did get some symptomatic relief with decompression with a nasogastric tube where they got about 950 cc out. They have hydrated him since being in the hospital. PLAN: 1. I would pull his nasogastric tube at his request. He wears a C-PAP machine at night. He says the nasogastric tube will prevent this and he is afraid of his pulmonary status. I think with the symptomatic relief with the nasogastric tube, we can go ahead and pull that. 2. Will repeat his liver function tests in the morning. 3. Consider a GI evaluation as well. 4. Follow up C. difficile and blood work. 5. I told him that if he is improved enough we possibly could do a cholecystectomy, if it is indicated, on an outpatient basis depending on his clinical recovery. MD ESME Chao/[place] /6:17 PM /7:41 PM
[2016-11-29] MEDS: PANTOPRAZOLE SODIUM 40 MG VIAL IV PUSH SCH (21:42)
[2016-11-30] VITALS: BP 125/79; PULSE 81; RESP 20; TEMP 96; O2SAT 96
[2016-11-30] MEDS: SODIUM CHLOR 0.9% 1000 ML INJ 1,000 ML IV SCH ×2 (04:25→12:00)
[2016-11-30] MEDS: INSULIN ASPART SUPPLEMENTAL SCALE SQ SCH ×3 (07:00→16:00)
[2016-11-30 07:11] LABS: HEMATOCRIT 39.8 % (39.0-51.0); MEAN CELL VOLUME 83.8 FL (80.0-100.0); MEAN CORPUSCULAR HEMOGLOBIN 27.8 PG (27.0-34.0); MEAN CORPUSCULAR HGB CONC 33.2 % (32.0-36.0); PLATELET COUNT 204 TH/MM3 (150-450); RED BLOOD COUNT 4.74 MIL/MM3 (4.50-5.90); RED CELL DISTRIBUTION WIDTH 12.6 % (11.6-17.2); WHITE BLOOD COUNT 6.3 TH/MM3 (4.0-11.0)
[2016-11-30 07:17] LABS: HEMO FLAGS AUTO DIFF
[2016-11-30 07:32] LABS: ALKALINE PHOSPHATASE 81 U/L (45-117); ALT (GPT) 148 U/L (12-78); ANION GAP 7 MEQ/L (5-15); AST (GOT) 58 U/L (15-37); BICARBONATE 28.8 MEQ/L (21.0-32.0); BLOOD UREA NITROGEN 17 MG/DL (7-18); CHLORIDE 103 MEQ/L (98-107); GLOMERULAR FILTRATION RATE 104 ML/MIN (>89); POTASSIUM 3.7 MEQ/L (3.5-5.1); SODIUM (NA) 139 MEQ/L (136-145); TOTAL BILIRUBIN ADULT 0.7 MG/DL (0.2-1.0)
[2016-11-30 07:54] LABS: BANDS 18 % (0-6); EOSINOPHILS 3 % (0-4); NEUTROPHIL # MANUAL DIFF 2.4 TH/MM3 (1.8-7.7); POLYS (SEG NEUTROPHILS) 20 % (16-70); WBC DIFF SAMPLE 100
[2016-11-30 07:55] LABS: DOHLE BODIES PRESENT (NONE SEEN); PLATELET ESTIMATE SMEAR NORMAL (NORMAL); PLATELET MORPHOLOGY NORMAL (NORMAL); SCAN/DIFF FINAL DIFF MANUAL
[2016-11-30 08:00] VITALS: BP 105/53; PULSE 68; RESP 18; TEMP 97.8; O2SAT 95
[2016-11-30] MEDS: METOPROLOL TARTRATE 100 MG TAB PO SCH (08:20)
[2016-11-30] MEDS: PANTOPRAZOLE SODIUM 40 MG VIAL IV PUSH SCH (08:20)
[2016-11-30] MEDS: SODIUM CHLORIDE 0.9% FLUSH 10 ML FLUSH IV FLUSH SCH (08:20)
[2016-11-30 12:00] VITALS: BP 130/70; PULSE 76; RESP 18; TEMP 97.9; O2SAT 96
--- NOTE | 2016-11-30 14:17 | HHI.PR ---
Subjective Remarks feeling better. Denies any chest pain or shortness of breath. Reports abdominal pain has almost resolved. Reports for bowel movement last night. Loose bowel movement this morning. Not recorded in system. Objective Vital Signs Date Time Temp Pulse Resp B/P Pulse Ox O2 Delivery O2 Flow Rate FiO2 11/30/16 12:00 97.9 76 18 130/70 96 11/30/16 08:00 97.8 68 18 105/53 95 11/30/16 00:00 96.0 81 20 125/79 96 11/29/16 20:00 96.6 89 20 125/78 94 11/29/16 16:00 97.9 89 20 127/77 99 I/O 11/29/16 11/29/16 11/29/16 11/30/16 11/30/16 11/30/16 06:59 14:59 22:59 06:59 14:59 22:59 Intake Total 2000 ml 1860 ml 0 ml 30 ml Output Total 1100 ml 0 ml Balance 900 ml 1860 ml 0 ml 30 ml Intake Oral 360 ml 0 ml 30 ml IV Total 2000 ml 1500 ml Output Urine Total 150 ml 0 ml Emesis 950 ml # Voids 1 2 0 2 # Bowel Movements 0 0 Result Diagram: 11/30/1662311/30/16623 Objective Remarks GENERAL: Sitting up in bed. Appears comfortable. Alert and oriented 3. SKIN: Warm and dry. HEAD: Normocephalic. EYES: No scleral icterus. No injection or drainage. NECK: Supple, trachea midline. No JVD. CARDIOVASCULAR: Regular rate and rhythm without murmurs, gallops, or rubs. RESPIRATORY: Breath sounds equal bilaterally. No accessory muscle use. GASTROINTESTINAL: Abdomen mild tenderness bilateral lower quadrants. No rebound or guarding. Positive bowel sounds. MUSCULOSKELETAL: No cyanosis, or edema. BACK: Nontender without obvious deformity. No CVA tenderness. A/P Assessment and Plan ===11/30/16 -Acute kidney injury resolved today. Creatinine 0.8. Per fluids - bandemia bands of 18% today. Heart rate, vital signs otherwise within normal limits. -Abdominal pain improved. Ileus appears to have resolved. advance to full liquid //Small bowel obstruction/ileus -Could be secondary to Imodium use -CT scan does indicate multiple dilated loops of jejunum concerning for obstruction -Surgery has been consulted for recommendations -Advance diet full liquid. -Continue IV fluids -NG tube has been removed. -Lactate within normal limits. -Appreciate GI and general surgery assistance. //Nausea, vomiting and diarrhea with possible hematemesis -Could be secondary to gastroenteritis, food poisoning -Continue Zofran -Continue IV fluids -GI consulted for recommendations -Continue Protonix -Check occult blood -Check stool for C. difficilefirm bowel movement, unlikely c diff.. //Transaminitis with hyperbilirubinemia -Could be secondary to nausea, vomiting, cholecystitis, cholelithiasis, [place] -CT scan does show a large liver with steatohepatitis -Gallbladder ultrasound unable to visualize bile duct, gallbladder, pancreas due to air, deferred to GI for possible HIDA scan -Check hepatitis profile -Continue monitor liver enzymes -Would appreciate recommendations from GI //Azotemia, unknown chronicity -Laboratory studies do indicate concentration, likely secondary to dehydration -Continue IV fluids -Monitor renal function //Hyponatremia -Pseudohyponatremia secondary to hyperglycemia -Corrected sodium level 136 //Diabetes, uncontrolled -Obtain hemoglobin A1c -Accu-Cheks with sliding scale insulin -Oral hypoglycemic agents held at this time due to likely obstruction //Hypertension, blood pressure stable this time -Continue home medications //Hyperlipidemia -Hold statin at this time due to elevated liver enzymes //DVT prevention -Sequential compression devices Discharge Planning When cleared by gastroenterology and surgery. Chava Winn MD Nov 30, 2016 14:17
[2016-11-30 16:00] VITALS: BP 156/95; PULSE 85; RESP 20; O2SAT 95
--- NOTE | 2016-11-30 18:20 | HHI.PR ---
Subjective Subjective Notes Abdominal pain resolved; tolerating full liquids without difficulty. Objective Vitals/I&O Vital Signs Date Time Temp Pulse Resp B/P Pulse Ox O2 Delivery O2 Flow Rate FiO2 11/30/16 16:00 85 20 156/95 95 11/30/16 12:00 97.9 11/29/16 08:24 Room Air Labs Laboratory Tests Test 11/30/16 06:24 White Blood Count 6.3 Red Blood Count 4.74 Hemoglobin 13.2 Hematocrit 39.8 Mean Corpuscular Volume 83.8 Mean Corpuscular Hemoglobin 27.8 Mean Corpuscular Hemoglobin 33.2 Concent Red Cell Distribution Width 12.6 Platelet Count 204 Mean Platelet Volume 8.2 Neutrophils (%) (Auto) Lymphocytes (%) (Auto) Monocytes (%) (Auto) Eosinophils (%) (Auto) Basophils (%) (Auto) Neutrophils # (Auto) Lymphocytes # (Auto) Monocytes # (Auto) Eosinophils # (Auto) Basophils # (Auto) CBC Comment AUTO DIFF Differential Total Cells 100 Counted Neutrophils % (Manual) 20 Band Neutrophils % 18 Lymphocytes % 35 Monocytes % 24 Eosinophils % 3 Neutrophils # (Manual) 2.4 Differential Comment FINAL DIFF MANUAL Dohle Bodies PRESENT Platelet Estimate NORMAL Platelet Morphology Comment NORMAL Red Cell Morphology Comment NORMAL Sodium Level 139 Potassium Level 3.7 Chloride Level 103 Carbon Dioxide Level 28.8 Anion Gap 7 Blood Urea Nitrogen 17 Creatinine 0.80 Estimat Glomerular Filtration 104 Rate Random Glucose 160 Calcium Level 8.2 Total Bilirubin 0.7 Aspartate Amino Transf 58 (AST/SGOT) Alanine Aminotransferase 148 (ALT/SGPT) Alkaline Phosphatase 81 Total Protein 6.0 Albumin 2.6 Abdomen: Non-distended, Non-tender A/P Assessment and Plan Nausea/vomiting/diarrhea, much improved Tolerating diet Has gallstones; discussed natural history and to contact Dr. Ragland's office Friday AM for follow up. Recent symptoms likely NOT related to incidental gallstones. He agrees to comply. Darryl Reid MD Nov 30, 2016 18:20
== END 2016-11-30 18:18 | disposition home or self-care (01) | DRG 389 ==
LOC: PHED 05:49 → PHEDA 08:32 → PH3A 09:23
PROVIDERS: ADMIT Internal Medicine; ATTEND Internal Medicine
DX: K56.60 Unspecified intestinal obstruction (principal); K92.0 Hematemesis; N17.9 Acute kidney failure, unspecified; E11.65 Type 2 diabetes mellitus with hyperglycemia; E87.1 Hypo-osmolality and hyponatremia; E27.8 Other specified disorders of adrenal gland; K75.81 Nonalcoholic steatohepatitis (NASH); Z99.81 Dependence on supplemental oxygen; E86.0 Dehydration; I10 Essential (primary) hypertension; K21.9 Gastro-esophageal reflux disease without esophagitis; G47.30 Sleep apnea, unspecified; E78.00 Pure hypercholesterolemia, unspecified; K44.9 Diaphragmatic hernia without obstruction or gangrene; K80.20 Calculus of gallbladder without cholecystitis without obstruction; N28.9 Disorder of kidney and ureter, unspecified; R74.0 Nonspecific elevation of levels of transaminase and lactic acid dehydrogenase [LDH]; R79.89 Other specified abnormal findings of blood chemistry; E78.5 Hyperlipidemia, unspecified; R74.8 Abnormal levels of other serum enzymes; Z82.49 Family history of ischemic heart disease and other diseases of the circulatory system; Z79.84 Long term (current) use of oral hypoglycemic drugs; Z83.3 Family history of diabetes mellitus
CPT/HCPCS: 74177; 76705; 80053; 80074; 81001; 82247; 82248; 82948; 83605; 83690; 85007; 85025; 85027; 96361; 96374; 96375; C9113; J1815; J2405; J7030; Q9967